=== PATIENT | male | born 1955 | race Caucasian/White ===

== ENCOUNTER 2016-12-18 05:46 | Day surgery (SDC) | payer OTHER ==
[2016-12-18] VITALS (22 sets, daily range): BP systolic 115–151; BP diastolic 64–102; PULSE 59–84; RESP 9–19; O2SAT 93–98
[~2016-12-18] VITALS: Ht 190.5 cm; Wt 93.7 kg
[~2016-12-18 05:46] MED LIST: ASPI-973 PO; CHOL10008 PO; Lactated Ringer's 1,000 ML IV ONE; METH500T5 PO; MILK87.5 PO; OMEG-38 PO
[2016-12-18] MEDS ORDERED: EPHEDrine/NS 5 mg/mL 5 mL Syringe ONE (05:47)
[2016-12-18] MEDS ORDERED: Neostigmine 1 mg/mL 10 mL Inj ONE (05:47)
[2016-12-18] MEDS ORDERED: Dexamethasone 4 mg/mL Inj ONE (05:47)
[2016-12-18] MEDS ORDERED: Propofol 10,000 mCg/mL 20 mL Inj ONE (05:47)
[2016-12-18] MEDS ORDERED: Glycopyrrolate 0.2 MG/ML 1mL Inj ONE (05:47)
[2016-12-18] MEDS ORDERED: fentaNYL-PF 50 mCg/mL 2 mL Inj ONE (05:47)
[2016-12-18] MEDS ORDERED: Ondansetron 2 mg/mL 2 mL Inj ONE (05:47)
[2016-12-18] MEDS ORDERED: Rocuronium 10 mg/mL 5 mL Inj ONE (05:47)
[2016-12-18] MEDS ORDERED: Heparin 5,000 Unit/mL Inj SUBQ ONE (06:00)
--- NOTE | 2016-12-18 07:05 | PCM.HPANE ---
Patient Data Date of Service: December 18, 2016 Surgeon Admitting Provider: Attending Provider:Rafi Galvan MD Primary Care Physician:Giovanni Goodson MD Other Provider:Isael Pavon Anesthesia Reason for Visit Biliary Colic Ht/WT & BMI Height (Feet): 6 Height (Inches): 3 Weight (Kilograms): 93.7 Body Mass Index 25.00 Allergies Coded Allergies: Penicillins (Verified Allergy, Unknown, rash, 12/14/16) Past Anesthesia History Anesthesia History: Denies:: Anesthesia Reactions, Difficult Intubation, Fam Anesthesia Reaction Diabetes History Hx Diabetes?: No Current Bedside Blood Glucose: 78 MRSA MRSA: No Medications Blood Thinner: Aspirin Hypertension Medication: No Home Meds Incl Beta Molly: No Reported Medications Milk Thistle Seed Extract (Milk Thistle Extract)87.5 Mg Bnqsrjk60.5 Mg PO DAILY 12/14/16 Methylcellulose (Citrucel)500 Mg Tablet5 Tab PO DAILY 12/14/16 Cholecalciferol (Vitamin D3) (Vitamin D3)1,000 Unit Tab.chew1,000 Unit PO DAILY 12/14/16 Napoleon-3/Dha/Epa/Fish Oil (Fish Oil 1,000 mg Softgel)1 Each Capsule1 Each PO DAILY 12/14/16 Aspirin 81 Mg Iuwtup19 Mg PO DAILY Ref 0 12/14/16 History History of ENT Problems?: No HEENT History: Positive for:: Hearing Problem (high frequency loss) Denies:: Cataracts Difficult Intubation Dysphagia Glaucoma Sinus Problem TMJ Denture Type: None Teeth Condition: Broken Teeth (chipped uper incisors) Missing Teeth (molars) Hx of Heart Problems?: No Cardiovascular History: Denies:: AICD Abdominal Aortic Aneurism Atrial Fibrillation Edema Heart Murmur Hypertension Irregular Heartbeat Pacemaker Peripheral Vascular Hx of Respiratory Problem?: No Respiratory History: Denies:: Asthma COPD Emphysema Oxygen Administration Pneumonia Tuberculosis Use of C-PAP Machine Use of Inhalers / NEBS Hx Neurologic Problems?: No Neurological History: Denies:: CVA Dizziness Headaches Multiple Sclerosis Parkinson's Disease Seizures TIA Hx of GI Problems?: Yes Hx of Problems?: No Genitourinary History: Denies:: Kidney Stones Urinary Tract Infection Male Hx: Positive for:: Prostate Problems (BPH) Denies:: Scrotal Mass Testicular Surgery Skin History: Denies:: History Skin Disorders? Pressure Ulcers Hx Musculoskeletal Problems?: Yes Musculoskeletal History: Positive for:: Back Injury (back surgery hx) Osteoarthritis Denies:: Fibromyalgia Joint Replacement Myasthenia Gravis Systemic Lupus Hx of Psycho/Social Problems?: No Psycho Social History: Denies:: Anxiety Hx Depression Hx Surgeries?: Yes (back surgery, knee scope, hemorrhoid) Hx Any Other Health Problems?: Yes Other History: Denies:: Cancer Thyroid Disease History Blood Transfusions: Positive for:: Accept Blood Products? Denies:: Blood Transfusions Hx Diabetes: NoBedside Blood Glucose: 78 Hx Alcohol Use: YesAlcoholic Drinks Per Day: 7-8 beers weeklyHx Substance Use : Yes (cannabis once monthly inhaled)Have You Smoked inLast 12 mo: No Stop/Bang Treated for Sleep Apnea?: No Do You Have a CPAP Machine?: No S-Snoring: Do You Snore Loudly: No T-Tired: feel tired, fatigued: No O-Obsered: Observed not breath: No P-Blood Pressure: treated: No B- Body Mass Index > 35 kg/m2: No A- Age over 50: Yes N- Neck Large Circumference: No G- Gender Male: Yes ASHVIN Total Score: 2 ASHVIN Risk Assessment: Low Risk, <3 Yes Risk Assessment Category Category 1A: Patient has history of documented sleep apnea, and HAS NOT received any narcotic, sedative or anesthesia administration during this stay. Category 1B: Patient has history of documented sleep apnea, and HAS received any narcotic , sedative or anesthesia administration during this stay Category 2: Patient has SUSPECTED Obstructive Sleep Apnea, and HAS received any narcotic , sedative or anesthesia administration during this stay. Category 3: Patient has SUSPECTED Obstructive Sleep Apnea and HAS NOT received narcotic, sedative or anesthesia administration during this stay. Category 4: Outpatient in Procedural Areas with known sleep apnea or who screen positive for High Risk via the STOP/BANG questionnaire. Exam Exam Vital Signs Vital Signs Date Time Temp Pulse Resp B/P Pulse Ox O2 Delivery O2 Flow Rate FiO2 12/18/16 06:26 151/92 12/18/16 06:20 36.3 66 16 151/102 98 Room Air General Appearance: Alert, Oriented X3, Cooperative, No Acute Distress HEENT/AIRWAY: MP 2 (chipped upper incisors) Lungs: Clear to Auscultation, Normal Air Movement Heart: Exam Unremarkable, Regular Rate/Rhythm, No Murmurs/Rubs/Gallops Meds/Labs/Diagnostics Admission Meds Current Medications Lactated Ringer's (Lr) 1,000 ml @ 120 mls/hr Q8H20M ONCE IV Last administered on 12/18/16t 06:10; Start 12/18/16 at 05:00; Stop 12/18/16 at 13:19 Bedside Blood Glucose: 78 Plan Impression Patient chart reviewed, patient interviewed and anesthestic plan with risks, benefits, and alternatives discussed, and informed consent obtained. NPO per Anesth. Guidelines: Yes ASA Physical Status: ASA2 Mod Systemic Disease Anesthetic Plan: GA Bene/Risks/Altern/Consents: Yes HP Complete Prior to Induction: Yes Preston Ludwig DO December 18, 2016 07:05
[2016-12-18] MEDS ORDERED: Bupivacaine-MPF 0.5% 30 mL Inj INFILTRATE ONE (07:53)
[2016-12-18] MEDS ORDERED: Lactated Ringer's 1,000 ML IV SCH (08:24)
[2016-12-18] MEDS ORDERED: Lactated Ringer's 500 ML IV PRN (08:24)
[2016-12-18] MEDS ORDERED: HYDROmorphone 1 mg/mL Inj IVPUSH PRN (08:25)
[2016-12-18] MEDS ORDERED: Ondansetron 2 mg/mL 2 mL Inj IVPUSH PRN (08:25)
[2016-12-18] MEDS ORDERED: fentaNYL-PF 50 mCg/mL 2 mL Inj IVPUSH PRN (08:25)
[2016-12-18] MEDS ORDERED: MetoCLOpramide 5 mg/mL 2 mL Inj IVPUSH PRN (08:25)
[2016-12-18] MEDS ORDERED: Dexamethasone 4 mg/mL Inj IVPUSH PRN (08:25)
[2016-12-18] MEDS ORDERED: EPHEDrine Sulfate 50 mg/mL Inj IVPUSH PRN (08:25)
[2016-12-18] MEDS ORDERED: Phenylephrine 10,000 mCg/mL Inj IVPUSH PRN (08:25)
[2016-12-18] MEDS ORDERED: HYDROcodone-APAP 5-325 mg Tablet PO PRN (09:15)
--- NOTE | 2016-12-18 10:00 | DRSVH ---
PROCEDURE: X-RAY OPERATIVE CHOLANGIOGRAM ([id number]) INDICATIONS: BILIARY COLIC COMPARISON: None. FINDINGS: Biliary ducts: The surgeon injected contrast into the biliary ducts after cannulation of the cystic duct stump. Visualized intra- and extrahepatic bile ducts are normal in caliber, without strictures. No intraluminal filling defects to suggest retained ductal stones or sludge. No evidence for iatro genic ductal injury. Duodenum: Contrast flows promptly through the sphincter of Oddi into the duodenum, which appears nor mal in caliber. IMPRESSION: Normal operative cholangiogram. Dictated by: Anjel Espinal M.D. on 12/18/2016 at 9:58 Approved by: Anjel Espinal M.D. on 12/18/2016 at 9:59
[2016-12-18] MEDS ORDERED: Lactated Ringer's 1,000 ML IV ONE (11:25)
[2016-12-18 11:26] LABS: TROPONIN T < 0.010 ug/L (0.0-0.011)
[2016-12-18 12:23] LABS: Creatine Kinase 39 U/L (21-232)
--- NOTE | 2016-12-18 14:09 | PCM.ANEP1 ---
Post Anesthesia Phase 1 PACU Phase 1 Assessment Date of Service: December 18, 2016 Vital Signs Vital Signs Date Time Temp Pulse Resp B/P Pulse Ox O2 Delivery O2 Flow Rate FiO2 12/18/16 12:50 74 94 Room Air 12/18/16 11:41 84 16 135/81 96 Room Air 12/18/16 11:30 36.4 81 14 134/73 93 Room Air 12/18/16 11:25 79 10 137/77 94 Room Air 12/18/16 11:15 78 17 136/71 93 Room Air 12/18/16 11:00 73 13 128/75 96 Room Air 12/18/16 10:45 70 12 125/76 97 Nasal Cannula 4 12/18/16 10:30 67 11 131/73 97 Nasal Cannula 4 12/18/16 10:15 64 10 130/78 98 Nasal Cannula 4 12/18/16 10:10 65 11 132/70 97 Nasal Cannula 4 12/18/16 10:05 66 10 139/78 96 Nasal Cannula 4 12/18/16 10:00 63 9 132/76 96 Nasal Cannula 4 12/18/16 09:55 68 13 132/77 96 Nasal Cannula 4 12/18/16 09:50 67 13 129/73 95 Nasal Cannula 4 12/18/16 09:45 66 11 127/73 96 Nasal Cannula 4 12/18/16 09:40 36.2 69 14 131/73 95 Nasal Cannula 4 12/18/16 09:35 75 16 135/79 97 Simple Mask 10 12/18/16 09:30 59 19 121/75 95 Simple Mask 15 12/18/16 09:25 59 14 115/64 94 Simple Mask 15 12/18/16 09:24 36.3 62 10 120/65 93 Simple Mask 8 12/18/16 06:26 151/92 12/18/16 06:20 36.3 66 16 151/102 98 Room Air Anesthetic Administered: GA Level of Alertness: Awake, talking ERICKSON's with Equal Strength: Yes Pain: No Nausea or Vomiting: No Airway Device: Oralpharangeal Airway Oxygen Delivery: Simple Mask Lungs: Clear to Auscultation, Normal Air Movement Dermatome Level: Full Sensation Complications: No Follow up Care: Yes Comments Pt instructed to follow up with cardiology on outpatient basis. Rhythm reviewed , interpreted to be SVT rather than the more ominous VT as originally assessed/ RN. 12l ecg SR, No cut abn. Electrolytes, pertinent cardiac enzymes wnl. Preston Ludwig DO December 18, 2016 14:09
--- NOTE | 2016-12-18 19:40 | OP ---
[address] [address] OPERATIVE REPORT PATIENT: SVITLANA PIMENTEL : 1955 MR#: [id number] ADMIT: 12/18/2016 JOB ID: [id number] DATE OF SURGERY: 12/18/2016 PREOPERATIVE DIAGNOSIS(ES): 1. Chronic calculous cholecystitis. 2. Incarcerated umbilical hernia. POSTOPERATIVE DIAGNOSIS(ES): 1. Chronic calculous cholecystitis. 2. Incarcerated umbilical hernia. OPERATION: 1. Laparoscopic cholecystectomy and cholangiograms. 2. Fluoroscopy with interpretation for cholangiograms. 3. Repair incarcerated umbilical hernia. SURGEON: Rafi Pimentel MD. LINING BASTER: Poli Younger PA-C. INDICATIONS: A 61-year-old man who has had a year and a half history of intermittent episodic right upper quadrant pain radiating into to his back, occurring 90 minutes after eating. His symptoms have increased in severity and can last up to several hours, occasionally associated with nausea. There is no history of pancreatitis, jaundice, acholic stools or dark urine. An abdominal ultrasound from [facility] demonstrated gallstones without evidence of cholecystitis or bile ductal dilatation. On physical examination, he had an incarcerated umbilical hernia. After discussing options with the patient, it was elected to proceed with a laparoscopic cholecystectomy and cholangiograms, and repair of his umbilical hernia. FINDINGS: He had chronic calculous cholecystitis. Cholangiogram showed free flow into the duodenum without filling defects. Contrast also flowed retrograde up through the common hepatic duct and into the right and left hepatic ducts. He had incarcerated omentum in his umbilical hernia. PROCEDURE: At the beginning and end of the operation, the SCOAP checklist was completed. A general endotracheal anesthetic was induced. Using ChloraPrep, he was prepped and draped in the usual fashion. He had on pneumatic hose and received subcutaneous heparin. All trocars sites were infiltrated with 0.5% plain bupivacaine. An infraumbilical incision was made and extended up into the umbilicus. The hernia sac was identified, and with sharp dissection, it from subcutaneous tissue and opened and the omentum reduced. The hernia defect was then elongated both proximally and distally. A trocar was inserted. The abdomen was insufflated with CO2. Under direct visualization 5 mm trocars were placed in the upper midline and two in the upper quadrant. The gallbladder fundus was identified and elevated. Adhesions were taken down with cautery. The infundibulum retracted inferiorly and laterally and the origin of the cystic duct and the gallbladder was identified. The gallbladder was removed from the plate. The cystic artery was also identified. A clip was placed at the origin of the cystic duct and the gallbladder, a small incision made in the cystic duct, a cholangiocatheter inserted, and cholangiograms were obtained. I had to put the patient into Trendelenburg in order to get filling of the common hepatic and intrahepatic ducts. Once that was achieved, he was repositioned and then the cholangiocatheter was removed and the cystic duct was controlled with two clips proximally and divided. The cystic artery was then fully exposed, divided between two clips proximally, one distally. The gallbladder was dissected away from the liver using cautery. After completely dissecting out the gallbladder and removing it from the liver, it was placed in a specimen bag. The subhepatic and right subphrenic spaces were irrigated with saline and aspirated. The clips on the cystic duct were secure, as well as on the cystic duct. There was no evidence of bleeding or bile leak. In order to remove the gallbladder within its specimen bag through the umbilical port, I again had to extend the incision proximally and distally. After getting the specimen bag out, the 5 mm trocars were removed without evidence of bleeding. The umbilical hernia defect was then closed and fascial incision was closed with running 0 Vicryl. Skin incisions were closed with subcuticular 4-0 Vicryl. Steri-Strips and Band-Aids were applied. Estimated blood loss 20 cc. No apparent complications. The final sponge, needle and instrument counts were announced as correct and the patient was returned to recovery room in stable condition. Critical assistance was provided by Dung Younger PA-C.
--- NOTE | 2016-12-19 14:05 | PATH ---
SURGICAL PATHOLOGY Attending Physician:Benja Hebert CASE STATUS: Signed Out PATIENT NAME: SVITLANA PIMENTEL PID: [id number] : 1955 DATE COLLECTED:12/18/2016 18:32 SPECIMEN: Gallbladder CLINICAL HISTORY: BILIARY COLIC 1). GALLBLADDER FINAL DIAGNOSIS: 1.GALLBLADDER: CHOLELITHIASIS AND MILD CHRONIC CHOLECYSTITIS. NO EVIDENCE OF MALIGNANCY. ICD10 CODE K80.6 GROSS DESCRIPTION: The specimen is received in one formalin filled container labeled with the patient's name, sublabeled "gallbladder" and consists of a 8.0 x 4.0 x 4.0 CM gallbladder. The serosa is smooth. The wall is 0.2-0.4 CM in thickness. The mucosa is a dark green callahan in color. The lumen contains a thick green mucoid material and 6 green callahan rough calculi which range in size from 0.6-3.0 CM in greatest dimension. 5 sales representative printing supplies sections are submitted in one cassette. 12/18/2016 DAC MICRO DESCRIPTION: See diagnosis. ICD-9 CODES: CPT CODES: 1: 22881 Electronically Signed Out Melonie Joseph MD [facility] Pathology [facility] [address], [place] [address] Technical component performed at [facility], [address] [place] [address] Ave[address], [place], [address]
== END 2016-12-18 23:59 | disposition home or self-care (01) ==
LOC: SAS 05:46 → MERGE 05:46 → SAS 23:59
PROVIDERS: ATTEND Surgery
DX: K80.10 Calculus of gallbladder with chronic cholecystitis without obstruction (principal); K42.0 Umbilical hernia with obstruction, without gangrene; Z79.82 Long term (current) use of aspirin
CPT/HCPCS: 36415; 47563; 49587; 74300; 80053; 82550; 82553; 83735; 84484; 93005; J1100; J1644; J2250; J2405; J2710; J3010; J7120; Q9967